=== PATIENT | female | born 1955 | race Caucasian/White ===

== ENCOUNTER 2021-11-16 14:31 | Emergency (ER) | payer MEDICARE, OTHER ==
[2021-11-16 14:40] VITALS: TEMP 98.4
--- NOTE | 2021-11-16 15:16 | ED ---
General Adult HPI - General Chief complaint: Recheck/Abnormal Lab/Rx Stated complaint: Needs bloodwork Time Seen by Provider: 11/16/21 15:00 Source: patient, RN notes reviewed, old records reviewed Mode of arrival: ambulatory Limitations: no limitations - History of Present Illness Initial comments: Patient presents with abnormal bruising to bilateral thighs and backs of arms with occasional bleeding with brushing her teeth over the past couple of days. She states that her and her drove up for from [place] and she noticed where her shorts were rubbing the bruises were developing. Patient states that she had a cardiac catheterization with a stent placed 2 months ago and at that time was put on Prasugrel. States she had her labs checked 1 month ago and all within normal limits. She did call her doctor who recommended she come to the emergency room for evaluation. Patient denies any rectal bleeding, no chest pain or difficulty in breathing. She states that the stent was placed in [place] after she was having chest pain and cardiac catheterization found blockage. She states she currently takes carvedilol 25 mg BID, atorvastatin 80 mg daily, Jeevan aspirin daily, and ranolazine ER 500mg bid. -: days(s) Severity scale (1-10): 0 Associated Symptoms: denies other symptoms Treatments Prior to Arrival: none - Related Data Allergies Allergy/AdvReac Type Severity Reaction Status Date / Time No Known Allergies Allergy Verified 11/16/21 14:40 Review of Systems ROS Statement: Those systems with pertinent positive or pertinent negative responses have been documented in the HPI. ROS Other: All systems not noted in ROS Statement are negative. Past Medical History Past Medical History: Hypertension History of Any Multi-Drug Resistant Organisms: None Reported Past Surgical History: Heart Catheterization With Stent Past Psychological History: No Psychological Hx Reported Smoking Status: Never smoker Past Alcohol Use History: None Reported Past Drug Use History: None Reported General Exam Limitations: no limitations General appearance: alert, in no apparent distress Head exam: Present: atraumatic Eye exam: Present: normal appearance. Absent: scleral icterus, conjunctival injection, periorbital swelling, periorbital tenderness ENT exam: Present: normal oropharynx, mucous membranes moist Neck exam: Present: normal inspection, full ROM. Absent: tenderness, meningismus Respiratory exam: Absent: respiratory distress, accessory muscle use Cardiovascular Exam: Present: regular rate GI/Abdominal exam: Present: soft. Absent: distended, tenderness Extremities exam: Present: full ROM, normal capillary refill. Absent: tenderness, pedal edema, calf tenderness Back exam: Present: normal inspection. Absent: tenderness, CVA tenderness (R), CVA tenderness (L), rash noted Neurological exam: Present: alert, oriented X3, normal gait Psychiatric exam: Present: normal affect, normal mood Skin exam: Present: warm, dry, other (Multiple areas of ecchymosis to bilateral anterior thighs and the backs of both upper arms) Course Vital Signs 11/16/21 11/16/21 14:35 16:00 Temperature 98.4 F Pulse Rate 71 80 Respiratory 20 18 Rate Blood Pressure 165/90 149/88 O2 Sat by Pulse 97 98 Oximetry Medical Decision Making - Medical Decision Making On physical exam there are scattered bruises to the abdomen, anterior thighs and the backs of bilateral upper arms. Abdomen is soft and nontender. She denies any hematochezia, hematuria or hematemesis. No dizziness, headaches, chest pain or shortness of breath. Vital signs are stable. Hemoglobin and hematocrit are stable at 12.5 and 38.2 respectively. Platelet count is 200. Total bilirubin 0.3, AST 23 ALT 22 alk phos 73, albumin 3.8. Her symptoms are likely related to her use of aspirin and prasugrel. She was instructed to follow-up with her primary care doctor this week and return to the emergency room with any new or concerning symptoms. Strict return parameters were discussed. Patient is agreeable to this plan of care. Case discussed with Dr. Hastings. - Lab Data Result diagrams: 11/16/21 15:15 11/16/21 15:15 Lab Results 11/16/21 11/16/21 11/16/21 Range/Units 15:15 15:15 15:15 WBC 4.9 (3.8-10.6) k/uL RBC 3.90 (3.80-5.40) m/uL Hgb 12.5 (11.4-16.0) gm/dL Hct 38.2 (34.0-46.0) % MCV 97.9 (80.0-100.0) fL MCH 32.2 (25.0-35.0) pg MCHC 32.9 (31.0-37.0) g/dL RDW 13.3 (11.5-15.5) % Plt Count 200 (150-450) k/uL MPV 7.9 Neutrophils % 66 % Lymphocytes % 24 % Monocytes % 6 % Eosinophils % 2 % Basophils % 1 % Neutrophils # 3.2 (1.3-7.7) k/uL Lymphocytes # 1.2 (1.0-4.8) k/uL Monocytes # 0.3 (0-1.0) k/uL Eosinophils # 0.1 (0-0.7) k/uL Basophils # 0.0 (0-0.2) k/uL PT 9.8 (9.0-12.0) sec INR 0.9 (<1.2) APTT 22.6 (22.0-30.0) sec Sodium 138 (137-145) mmol/L Potassium 4.0 (3.5-5.1) mmol/L Chloride 105 (98-107) mmol/L Carbon Dioxide 30 (22-30) mmol/L Anion Gap 3 mmol/L BUN 12 (7-17) mg/dL Creatinine 0.87 (0.52-1.04) mg/dL Est GFR (CKD-EPI)AfAm 81 (>60 ml/min/1.73 sqM) Est GFR (CKD-EPI)NonAf 70 (>60 ml/min/1.73 sqM) Glucose 90 (74-99) mg/dL Calcium 9.0 (8.4-10.2) mg/dL Total Bilirubin 0.3 (0.2-1.3) mg/dL AST 23 (14-36) U/L ALT 22 (4-34) U/L Alkaline Phosphatase 73 (38-126) U/L Total Protein 6.5 (6.3-8.2) g/dL Albumin 3.8 (3.5-5.0) g/dL Disposition Clinical Impression: Ecchymosis, Medication side effect Disposition: HOME SELF-CARE Condition: Good Instructions (If sedation given, give patient instructions): Safe Use of Antiplatelet Medication (ED), Ecchymosis (ED) Additional Instructions: Hemoglobin and hematocrit are stable at 12.5 and 38.2 respectively. Platelet count is 200. Total bilirubin 0.3, AST 23 ALT 22 alk phos 73, albumin 3.8. Call your primary care doctor to advise him of these test results. Return to the emergency room with any new or concerning symptoms including abnormal bleeding, dizziness, chest pain or shortness of breath. Is patient prescribed a controlled substance at d/c from ED?: No Referrals: Nonstaff,Physician [Primary Care Provider] - 1-2 days Time of Disposition: 16:13
[2021-11-16 15:26] LABS: Basophils % (A) 1 %; Eosinophils # (A) 0.1 k/uL (0-0.7); Eosinophils % (A) 2 %; HCT 38.2 % (34.0-46.0); HGB 12.5 gm/dL (11.4-16.0); Lymphocytes # (A) 1.2 k/uL (1.0-4.8); Lymphocytes % (A) 24 %; MCH 32.2 pg (25.0-35.0); MCHC 32.9 g/dL (31.0-37.0); MCV 97.9 fL (80.0-100.0); Mean Platelet Volume 7.9; Monocytes # (A) 0.3 k/uL (0-1.0); Monocytes % (A) 6 %; Neutrophils # (A) 3.2 k/uL (1.3-7.7); Neutrophils % (A) 66 %; Platelet Count 200 k/uL (150-450); RDW 13.3 % (11.5-15.5); WBC 4.9 k/uL (3.8-10.6)
[2021-11-16 15:36] LABS: INR 0.9 (<1.2); Partial Thromboplastin Time 22.6 sec (22.0-30.0); Prothrombin Time 9.8 sec (9.0-12.0)
[2021-11-16 16:00] LABS: Albumin 3.8 g/dL (3.5-5.0); Total Bilirubin 0.3 mg/dL (0.2-1.3); Total Protein 6.5 g/dL (6.3-8.2)
[2021-11-16 16:24] VITALS: BP 149/88; PULSE 80; RESP 18
== END 2021-11-16 16:28 | disposition home or self-care (01) ==
LOC: EDBD → EC 14:31
DX: T78.8XXA Other adverse effects, not elsewhere classified, initial encounter (principal); R58 Hemorrhage, not elsewhere classified; I10 Essential (primary) hypertension
CPT/HCPCS: 36415; 80053; 85025; 85610; 85730; 99283